=== PATIENT | female | born 1950 | race African-American/Black ===

== ENCOUNTER 2017-07-23 18:12 | Emergency (ER) | payer OTHER ==
[2017-07-23 18:30] VITALS: BP 167/98; PULSE 63; TEMP 98.6; BMI 27.0
--- NOTE | 2017-07-23 19:48 | PDOC ---
History of Present Illness - General History Source: Patient Exam Limitations: No Limitations - History of Present Illness Initial Comments: 07/23/17 19:49 The patient is a 67 year old female with no significant PMH who presents to the emergency department with a progressively worsening headache beginning approximately 3 days ago. The patient describes her headache as a tension-like headache localized in the bilateral temples, worse in the left muslim. She also notes intermittent dizziness and nasal congestion over the past 3 days but denies cough. She reports taking Tylenol to some relief. The patient denies any photophobia or nausea. She denies any speech problems, weakness, or facial droop. She denies any changes in vision or sensation. The patient denies chest pain, shortness of breath, headache and dizziness. Denies fever, chills, nausea, vomit, diarrhea and constipation. Denies dysuria, frequency, urgency and hematuria. Allergies: NKDA Past surgical history: Myomectomy. Social history: No reported cigarette, alcohol, or drug use. PCP: None reported. <Kem Chawla - Last Filed: 07/23/17 20:44> <Tea Leal - Last Filed: 07/23/17 21:25> - General Chief Complaint: Headache Stated Complaint: head ache Time Seen by Provider: 07/23/17 19:12 Past History <Kem Chawla - Last Filed: 07/23/17 20:44> - Past Medical History Anemia: No (HIGH PLATELETS) Asthma: No Cancer: No Cardiac Disorders: No CVA: No COPD: No CHF: No DVT: No Dementia: No Diabetes: No GI Disorders: No Disorders: No HTN: No Hypercholesterolemia: No Liver Disease: No Seizures: No Thyroid Disease: No - Surgical History Abdominal Surgery: Yes (MYOMECTOMY) Appendectomy: No Cardiac Surgery: No Cholecystectomy: No Lung Surgery: No Neurologic Surgery: No Orthopedic Surgery: No - Suicide/Smoking/Psychosocial Hx Smoking History: Never smoked Have you smoked in the past 12 months: No Hx Alcohol Use: No Drug/Substance Use Hx: No Substance Use Type: None Hx Substance Use Treatment: No <Tea Leal - Last Filed: 07/23/17 21:25> - Past Medical History Allergies/Adverse Reactions: Allergies Allergy/AdvReac Type Severity Reaction Status Date / Time No Known Drug Allergies Allergy Verified 07/23/17 18:22 Home Medications: Ambulatory Orders Aspirin [Aspirin EC] 81 mg PO DAILY 07/18/15 Benzonatate [Tessalon Pearls -] 100 mg PO TID 07/23/17 Naproxen Sodium [Anaprox Ds] 550 mg PO BID PRN #20 tablet 07/23/17 Review of Systems - Review of Systems Able to Perform ROS?: Yes Comments:: 07/23/17 19:50 A complete review of 10 out of 10 review of systems is taken and is negative apart from what is previously mentioned below and in the HPI. <Kem Chawla - Last Filed: 07/23/17 20:44> *Physical Exam - Vital Signs Last Vital Signs Temp Pulse Resp BP Pulse Ox 98.6 F 63 18 167/98 99 07/23/17 18:13 07/23/17 18:13 07/23/17 18:13 07/23/17 18:13 07/23/17 18:13 - Physical Exam Comments: 07/23/17 20:45 GENERAL: Awake, alert, and fully oriented, in no acute distress HEAD: (+) Mild tenderness to left temporal scalp without masses, skin lesions, lacerations, or abrasions. No signs of trauma EYES: PERRLA, EOMI, sclera anicteric, conjunctiva clear ENT: Auricles normal inspection, hearing grossly normal, nares patent, oropharynx clear without exudates. Moist mucosa NECK: Normal ROM, supple, no lymphadenopathy, JVD, or masses LUNGS: Breath sounds equal, clear to auscultation bilaterally. No wheezes, and no crackles HEART: Regular rate and rhythm, normal S1 and S2, no murmurs, rubs or gallops ABDOMEN: Soft, nontender, normoactive bowel sounds. No guarding, no rebound. No masses EXTREMITIES: Normal range of motion, no edema. No clubbing or cyanosis. No cords, erythema, or tenderness NEUROLOGICAL: Cranial nerves II through XII grossly intact. Normal speech, normal gait SKIN: Warm, Dry, normal turgor, no rashes or lesions noted. <Kem Chawla - Last Filed: 07/23/17 20:44> - Vital Signs Last Vital Signs Temp Pulse Resp BP Pulse Ox 98.6 F 63 18 167/98 99 07/23/17 18:13 07/23/17 18:13 07/23/17 18:13 07/23/17 18:13 07/23/17 18:13 <Tea Leal - Last Filed: 07/23/17 21:25> *DC/Admit/Observation/Transfer - Attestations Scribe Attestion: 07/23/17 19:50 Documentation prepared by Kem Chawla, acting as medical insurance coding specialist for Tea Leal MD. <Kem Chawla - Last Filed: 07/23/17 20:44> <Tea Leal - Last Filed: 07/23/17 21:25> Diagnosis at time of Disposition: Acute viral bronchitis Headache Qualifiers: Headache type: unspecified Headache chronicity pattern: acute headache Intractability: not intractable Qualified Code(s): R51 - Headache - Discharge Dispostion Disposition: HOME Condition at time of disposition: Stable - Prescriptions Prescriptions: Naproxen Sodium [Anaprox Ds] 550 mg PO BID PRN #20 tablet PRN Reason: Headache - Patient Instructions Printed Discharge Instructions: DI for Headache Additional Instructions: drink plenty of fluids;rest Naproxen 550 milligrams twice a day for headache; take with food Follow-up with your doctor within the next 48 hours Return to ER if you have more severe pain or experience vomiting/fever
[2017-07-23] MEDS ORDERED: NAPROXEN 500 MG TABLET (FP) PO ONE (21:20)
[2017-07-23] MEDS ORDERED: NAPROXEN 500 MG TABLET (FP) ONE (21:21)
== END 2017-07-23 21:29 | disposition home or self-care (01) ==
LOC: FER 18:12
DX: R51 Headache (principal); J20.8 Acute bronchitis due to other specified organisms; B97.89 Other viral agents as the cause of diseases classified elsewhere
CPT/HCPCS: 70450-TC; 99281-25

== ENCOUNTER 2018-09-01 20:00 | Emergency (ER) | payer OTHER ==
[2018-09-01 20:17] VITALS: TEMP 98.6; BMI 27.0
--- NOTE | 2018-09-01 20:18 | PDOC ---
History of Present Illness - General History Source: Patient Exam Limitations: No Limitations - History of Present Illness Initial Comments: 09/01/18 20:26 The patient is a 68 year old female with a past medical history of thrombocytopenia here today for evaluation of chest pain. The patient reports that her chest pain began on sunday08/30/18 when she was walking around the house and describes it as sharp, localized to the left side of her chest, and lasting for approximately 1.5 minutes. She has had multiple episodes of this chest pain since then in the left side of her chest and in the middle of her chest. She reports recently getting over a stomach virus which caused diarrhea and vomiting but states she not longer has those symptoms. She also notes tingling in the soles of her feet in the mornings. Patient denies headache, lightheadedness. Denies fever, chills. Denies shortness of breath. Denies nausea, vomiting, diarrhea, abdominal pain. Denies lower extremity edema. Allergies: Hal Girard Social history: Patient denies tobacco use. PCP: [facility] <All Palma - Last Filed: 09/01/18 20:33> <José Robles - Last Filed: 09/02/18 03:36> - General Chief Complaint: Chest Pain Stated Complaint: LEFT CHEST PAIN Time Seen by Provider: 09/01/18 20:17 Past History <All Palma - Last Filed: 09/01/18 20:33> - Past Medical History Anemia: No (HIGH PLATELETS) Asthma: No Cancer: No Cardiac Disorders: No CVA: No COPD: No CHF: No DVT: No Dementia: No Diabetes: No GI Disorders: No Disorders: No HTN: No Hypercholesterolemia: No Liver Disease: No Seizures: No Thyroid Disease: No - Surgical History Abdominal Surgery: Yes (MYOMECTOMY) Appendectomy: No Cardiac Surgery: No Cholecystectomy: No Lung Surgery: No Neurologic Surgery: No Orthopedic Surgery: No - Suicide/Smoking/Psychosocial Hx Smoking History: Never smoked Have you smoked in the past 12 months: No Hx Alcohol Use: Yes (RARE) Drug/Substance Use Hx: No Substance Use Type: None Hx Substance Use Treatment: No <José Robles - Last Filed: 09/02/18 03:36> - Past Medical History Allergies/Adverse Reactions: Allergies Allergy/AdvReac Type Severity Reaction Status Date / Time No Known Drug Allergies Allergy Verified 09/01/18 20:12 Home Medications: Ambulatory Orders Aspirin [Aspirin EC] 81 mg PO DAILY 07/18/15 Review of Systems - Review of Systems Able to Perform ROS?: Yes Comments:: 09/01/18 20:26 GENERAL/CONSTITUTIONAL: No fever or chills. No weakness. HEAD, EYES, EARS, NOSE AND THROAT: No change in vision. No ear pain or discharge. No sore throat. CARDIOVASCULAR: +chest pain. No shortness of breath. RESPIRATORY: No cough, wheezing, or hemoptysis. GASTROINTESTINAL: No nausea, vomiting, diarrhea or constipation. GENITOURINARY: No dysuria, frequency, or change in urination. MUSCULOSKELETAL: No joint or muscle swelling or pain. No neck or back pain. SKIN: No rash NEUROLOGIC: +tingling in soles of feet. No headache, vertigo, loss of consciousness, or change in strength. ENDOCRINE: No increased thirst. No abnormal weight change. HEMATOLOGIC/LYMPHATIC: No anemia, easy bleeding, or history of blood clots. ALLERGIC/IMMUNOLOGIC: No hives or skin allergy. <All Palma - Last Filed: 09/01/18 20:33> *Physical Exam - Vital Signs Last Vital Signs Temp Pulse Resp BP Pulse Ox 98.6 F 69 16 140/89 98 09/01/18 20:01 09/01/18 20:01 09/01/18 20:01 09/01/18 20:01 09/01/18 20:01 - Physical Exam Comments: 09/01/18 20:33 GENERAL: Awake, alert, and fully oriented, in no acute distress HEAD: No signs of trauma EYES: PERRLA, EOMI, sclera anicteric, conjunctiva clear ENT: Auricles normal inspection, hearing grossly normal, nares patent, oropharynx clear without exudates. Moist mucosa NECK: Normal ROM, supple, no lymphadenopathy, JVD, or masses LUNGS: Breath sounds equal, clear to auscultation bilaterally. No wheezes, and no crackles HEART: Regular rate and rhythm, normal S1 and S2, no murmurs, rubs or gallops ABDOMEN: Soft, nontender, normoactive bowel sounds. No guarding, no rebound. No masses EXTREMITIES: Normal range of motion, no edema. No clubbing or cyanosis. No cords, erythema, or tenderness NEUROLOGICAL: Cranial nerves II through XII grossly intact. Normal speech, normal gait SKIN: Warm, Dry, normal turgor, no rashes or lesions noted. <All Palma - Last Filed: 09/01/18 20:33> - Vital Signs Last Vital Signs Temp Pulse Resp BP Pulse Ox 98.6 F 69 16 140/89 98 09/01/18 20:01 09/01/18 20:01 09/01/18 20:01 09/01/18 20:01 09/01/18 20:01 <José Robles - Last Filed: 09/02/18 03:36> Moderate Sedation - Procedure Monitoring Vital Signs: Procedure Monitoring Vital Signs Temperature 98.6 F 09/01/18 20:01 Pulse Rate 69 09/01/18 20:01 Respiratory Rate 16 09/01/18 20:01 Blood Pressure 140/89 09/01/18 20:01 O2 Sat by Pulse Oximetry (%) 98 09/01/18 20:01 <All Palma - Last Filed: 09/01/18 20:33> - Procedure Monitoring Vital Signs: Procedure Monitoring Vital Signs Temperature 98.6 F 09/01/18 20:01 Pulse Rate 69 09/01/18 20:01 Respiratory Rate 16 09/01/18 20:01 Blood Pressure 140/89 09/01/18 20:01 O2 Sat by Pulse Oximetry (%) 98 09/01/18 20:01 <José Robles - Last Filed: 09/02/18 03:36> ED Treatment Course - LABORATORY CBC & Chemistry Diagram: 09/01/18 20:40 09/01/18 20:40 <José Robles - Last Filed: 09/02/18 03:36> Medical Decision Making - Medical Decision Making 09/02/18 03:32 EKG: sinus at 64, nl axis, nl intervals, no acute ischemic findings CXR: CLARA, as read by me, referred to radiology for definitive read atypical cp (brief, at times reproducible) observed on monitor x 6 hrs without event trop- x 2 outpt fu to continue [place] <José Robles - Last Filed: 09/02/18 03:36> *DC/Admit/Observation/Transfer - Attestations Scribe Attestion: 09/01/18 20:27 Documentation prepared by JUAN C Daly, acting as medical assisting program director for José Robles MD. <All Palma - Last Filed: 09/01/18 20:33> <José Robles - Last Filed: 09/02/18 03:36> Diagnosis at time of Disposition: Chest pain Qualifiers: Chest pain type: unspecified Qualified Code(s): R07.9 - Chest pain, unspecified - Discharge Dispostion Disposition: HOME Condition at time of disposition: Good - Referrals Referrals: Hal Girard [Primary Care Provider] - Call tomorrow - Patient Instructions Printed Discharge Instructions: DI for Chest Pain - Post Discharge Activity
[2018-09-01 21:13] LABS: ALK PHOS 51 U/L (45-117); ANION GAP 10 MMOL/L (8-16); BILIRUBIN,TOTAL 0.5 mg/dl (0.2-1); BLOOD UREA NITROGEN 16 mg/dl (7-18); CALCIUM 8.7 mg/dl (8.5-10); CHLORIDE 106 mmol/L (98-107); CO2 22 mmol/L (21-32); GLUCOSE,RANDOM 110 mg/dl (74-106); SGOT/AST 19 U/L (15-37); SGPT/ALT 18 U/L (13-61); SODIUM 138 mmol/L (136-145)
[2018-09-01 21:58] LABS: EOS % 1.5 % (0-4.5); HEMATOCRIT 36.8 % (32.4-45.2); HEMOGLOBIN 12.6 GM/dL (10.7-15.3); MCH 31.9 pg (25.7-33.7); MCHC 34.1 g/dl (32.0-36.0); MEAN CELL VOLUME 93.6 fl (80-96); MEAN PLT VOLUME 8.7 fl (7.5-11.1); MONO % 9.9 % (3.8-10.2); NEUT % 51.6 % (42.8-82.8); PLATELET COUNT 566 K/MM3 (134-434); RBC 3.94 M/mm3 (3.60-5.2); RDW 13.2 % (11.6-15.6); WHITE BLOOD COUNT 5.4 K/mm3 (4.0-10.0)
[2018-09-02] MEDS ORDERED: LIDOCAINE HCL 2% (50ML VIAL) SQ ONE (01:23)
[2018-09-02] MEDS ORDERED: TETANUS AND DIPHTHERIA TOXOID 0.5 ML DISP.SYRIN IM ONE (01:23)
[2018-09-02 02:21] VITALS: BP 132/75; PULSE 78
--- NOTE | 2018-09-03 09:28 | EKG ---
Test Reason : Blood Pressure : / mmHG Vent. Rate : 064 BPM Atrial Rate : 064 BPM P-R Int : 156 ms QRS Dur : 088 ms QT Int : 420 ms P-R-T Axes : 052 -20 012 degrees QTc Int : 433 ms NORMAL SINUS RHYTHM MINIMAL VOLTAGE CRITERIA FOR LVH, MAY BE NORMAL VARIANT BORDERLINE ECG NO PREVIOUS ECGS AVAILABLE Confirmed by RASHAWN RICE, KIMO ([id number]) on 09/03/2018 9:28:36 AM Referred By: MARV KIRK Confirmed By:KIMO MOROCHO MD
== END 2018-09-02 02:21 | disposition home or self-care (01) ==
LOC: FER 20:00
DX: R07.9 Chest pain, unspecified (principal)
CPT/HCPCS: 36415; 71046-TC-FY; 80053; 84484; 85025; 93005; 99284-25

== ENCOUNTER 2022-09-21 07:42 | Day surgery (SDC) | payer OTHER ==
[2022-09-15 10:49] VITALS: BMI 28.0
[2022-09-21 08:06] VITALS: TEMP 97.9
[2022-09-21 09:49] VITALS: BP 118/72; PULSE 75; RESP 20
== END 2022-09-21 09:45 | disposition home or self-care (01) ==
LOC: FASU-ENDO 07:42
PROVIDERS: ATTEND Internal Medicine Gastroenterology
PROC: 0DJD8ZZ Inspection of Lower Intestinal Tract, Via Natural or Artificial Opening Endoscopic (ICD-10-PCS; principal; 2022-09-21 08:46)
DX: Z12.11 Encounter for screening for malignant neoplasm of colon (principal)